=== PATIENT | female | born 1940 | race African-American/Black ===

== ENCOUNTER 2018-10-21 10:01 | Emergency (ER) | payer OTHER ==
[~2018-10-21] VITALS: Ht 157.5 cm; Wt 77.1 kg
[~2018-10-21 10:01] MED LIST: LISINOPRIL10 MG PO; NORCO 5-325 TA1 EACH PO
[2018-10-21 10:02] VITALS: BP 160/83
[2018-10-21] MEDS ORDERED: ANUSOL-HC25 MG RECTAL (10:17)
[2018-10-21] MEDS ORDERED: TESSALON PERLE100 MG PO (10:17)
[2018-10-21] MEDS ORDERED: FLONASE 0.05%50 MCG NASAL (10:17)
[2018-10-21] MEDS ORDERED: PEPCID20 MG PO (10:37)
[2018-10-21] MEDS ORDERED: AMOXICILLIN875 MG PO (10:40)
== END 2018-10-21 10:52 | disposition home or self-care (01) ==
LOC: ER 10:01
DX: T78.3XXA Angioneurotic edema, initial encounter (principal); J20.9 Acute bronchitis, unspecified; T48.3X5A Adverse effect of antitussives, initial encounter; T49.6X5A Adverse effect of otorhinolaryngological drugs and preparations, initial encounter; Y92.9 Unspecified place or not applicable; I10 Essential (primary) hypertension; Z90.710 Acquired absence of both cervix and uterus; J32.9 Chronic sinusitis, unspecified